=== PATIENT | male | born 1985 | race Caucasian/White ===

== ENCOUNTER 2016-10-04 07:56 | Day surgery (SDC) | payer OTHER ==
[~2016-10-04] VITALS: Ht 177.8 cm; Wt 89.0 kg
[~2016-10-04 07:56] MED LIST: DOXYCYCLINE 10100 MG PO; PROTONIX 40MG T40 MG PO; PROZAC 20MG20 MG PO
[2016-10-04 08:12] VITALS: BP 120/95; PULSE 80; TEMP 97.8
[2016-10-04 09:25] VITALS: BP 125/88; PULSE 76; TEMP 97.7
[2016-10-04 09:40] VITALS: BP 116/79; PULSE 72
[2016-10-04 09:55] VITALS: BP 124/84; PULSE 78
== END 2016-10-04 10:02 | disposition home or self-care (01) ==
LOC: SDCO 07:56
DX: K21.0 Gastro-esophageal reflux disease with esophagitis (principal); K22.70 Barrett's esophagus without dysplasia; J45.909 Unspecified asthma, uncomplicated
CPT/HCPCS: J2250; J2405; J3010; J7030